=== PATIENT | male | born 1965 | race Caucasian/White ===

== ENCOUNTER 2021-11-17 14:41 | Outpatient (CLI) | payer OTHER, SELFPAY ==
[2021-11-17 17:22] LABS: Cholesterol* 78 mg/dL (90-199); HDL Cholesterol* 37 mg/dL (>=40); LDL Cholesterol Calculated 22 mg/dL (<100); Triglycerides* 95 mg/dL (40-149)
[2021-11-17 17:36] LABS: Creatinine Urine 209.8 mg/dL
[2021-11-17 17:41] LABS: Microalbumin Creatinine Ratio 10 mg/g (0-30); Microalbumin Urine 4 mg/dL
== END 2021-11-17 14:42 | disposition home or self-care (01) ==
LOC: LONREF 14:43
PROVIDERS: PCP Family Medicine; Visit Provider Family Medicine
DX: E11.9 Type 2 diabetes mellitus without complications (principal); E78.5 Hyperlipidemia, unspecified; N52.9 Male erectile dysfunction, unspecified; D12.6 Benign neoplasm of colon, unspecified
CPT/HCPCS: 80061; 82043; 82570

== ENCOUNTER 2023-01-22 09:07 | Outpatient (CLI) | payer OTHER, SELFPAY | END 2023-01-22 09:08 | disposition home or self-care (01) | PROVIDERS: PCP Family Medicine; Visit Provider Family Medicine | DX: E11.9 Type 2 diabetes mellitus without complications (principal); E78.5 Hyperlipidemia, unspecified; Z12.5 Encounter for screening for malignant neoplasm of prostate | CPT/HCPCS: 80061; 84153 ==

== ENCOUNTER 2023-12-09 06:24 | Outpatient (CLI) | payer OTHER, SELFPAY ==
--- NOTE | 2023-12-09 07:48 | W.ANESCHARGE ---
Anesthesia Charges Start Date/Time Anesthesia Start Date: 12/09/23 Anesthesia Start Time: 07:15 Stop Date/Time Anesthesia Stop Date: 12/09/23 Anesthesia Stop Time: 07:46
--- NOTE | 2023-12-09 09:17 | W.ANESCHARGE ---
Anesthesia Charges Start Date/Time Anesthesia Start Date: 12/09/23 Anesthesia Start Time: 07:15 Stop Date/Time Anesthesia Stop Date: 12/09/23 Anesthesia Stop Time: 07:46
== END 2023-12-09 06:25 | disposition home or self-care (01) ==
LOC: OP CLINIC 06:24
PROVIDERS: PCP Family Medicine; Visit Provider Internal Medicine
DX: Z12.11 Encounter for screening for malignant neoplasm of colon (principal); Z86.010 Personal history of colon polyps
CPT/HCPCS: 00811; 00812; 45378; J2704